=== PATIENT | male | born 1940 | race Caucasian/White ===

== ENCOUNTER 2020-07-02 14:16 | Inpatient (IN) | payer OTHER, MEDICAID ==
[~2020-07-02] VITALS: Ht 165.1 cm; Wt 74.4 kg
[2020-07-02] MEDS ORDERED: AMIODARONE HYD200 MG PO (14:55)
[2020-07-02] MEDS ORDERED: CYMBALTA30 MG PO (14:56)
[2020-07-02] MEDS ORDERED: B121000 MCG/1 IM (14:56)
[2020-07-02] MEDS ORDERED: FINASTERIDE5 M1 PO (14:57)
[2020-07-02] MEDS ORDERED: LASIX40 MG PO (14:57)
[2020-07-02] MEDS ORDERED: MELATONIN1 MG PO (14:58)
[2020-07-02] MEDS ORDERED: LOPRESSOR25 MG PO (14:58)
[2020-07-02] MEDS ORDERED: TYLENOL325 M1 PO (15:00)
[2020-07-02] MEDS ORDERED: XARE15TA PO (15:01)
[2020-07-02] MEDS ORDERED: PLAVIX75 M1 PO (15:02)
[2020-07-02] MEDS ORDERED: POTASSIUM CHLO10 ME4 PO (15:04)
[2020-07-02] MEDS ORDERED: PRAVACHOL40 MG PO (15:04)
[2020-07-02] MEDS ORDERED: PROTONIX40 MG PO (15:10)
[2020-07-02] MEDS ORDERED: PROVENTIL HFA6.7 GM INH (15:12)
[2020-07-02] MEDS ORDERED: SEROQUEL25 MG PO (15:13)
[2020-07-02] MEDS ORDERED: SEROQUEL50 MG PO (15:13)
[2020-07-02] MEDS ORDERED: SYMB160 INH (15:14)
[2020-07-02] MEDS ORDERED: SYNTHROID25 MCG PO (15:15)
[2020-07-02] MEDS ORDERED: ROPINIROLE HYDRO1 MG PO (15:17)
[2020-07-02 17:33] VITALS: BP 118/62
[2020-07-02 19:23] VITALS: BP 122/64
[2020-07-02 20:00] VITALS: BP 122/64
[2020-07-02 21:15] LABS: BILIRUBIN Negative (Negative); BLOOD 1+ (Negative); CLARITY Cloudy (Clear); COLOR Yellow (Yellow); GLUCOSE Negative (Negative); KETONE Negative (Negative); LEUKO ESTERASE 3+ (Negative); NITRITE Positive (Negative); SPECIFIC GRAVITY 1.015 (1.001-1.030); UROBILINOGEN 0.2 E.U./dl (0.0-1.0)
[2020-07-02 21:23] LABS: BACTERIA 2+; MUCOUS TRACE; WBC TNTC wbc/hpf (0-5)
[2020-07-03 07:08] LABS: BASO # 0.1 10*3/uL (0.0-0.1); BASO % 0.8 % (0.0-1.0); EOS # 0.2 10*3/uL (0.0-0.4); EOS % 2.6 % (1.0-4.0); HEMATOCRIT 38.1 % (42.0-52.0); LYMPH # 2.3 10*3/uL (1.3-4.4); LYMPH % 29.4 % (27.0-41.0); MEAN CELL VOLUME 95.3 fl (80.0-94.0); MEAN CORPUSCULAR HGB 30.3 pg (27.0-31.0); MEAN CORPUSCULAR HGB CONC 31.8 g/dl (33.0-37.0); MEAN PLATELET VOLUME 10.4 fl (9.6-12.3); MONO # 0.9 10*3/uL (0.1-1.0); MONO % 11.4 % (3.0-9.0); NEUT # 4.3 10*3/uL (2.3-7.9); NEUT % 55.7 % (47.0-73.0); PLATELET COUNT AUTOMATED 339 10*3/uL (130-400); RED CELL DISTRI WIDTH 15.1 % (0-14.5); WHITE BLOOD COUNT 7.7 10*3/uL (4.8-10.8)
[2020-07-03 07:16] VITALS: BP 153/81
[2020-07-03 07:34] LABS: CHLORIDE 103 mmol/L (98-107); POTASSIUM 3.7 mmol/L (3.5-5.1); SODIUM 137 mmol/L (136-145)
[2020-07-03 07:54] LABS: ALBUMIN 3.2 gm/dl (3.1-4.5); ALKALINE PHOSPHATASE 80 U/L (45-117); BUN 18 mg/dl (7-24); CHOLESTEROL 136 mg/dL (<200); CREATININE 1.05 mg/dL (0.70-1.30); HDL CHOLESTEROL 50 mg/dl (40-60); LDL CHOLESTEROL 57 mg/dL (9-159); SGOT/AST 23 IU/L (3-35); SGPT/ALT 29 U/L (12-78); TOTAL PROTEIN 6.7 gm/dL (6.4-8.2); TRIGLYCERIDES 144 mg/dl (<150); VLDL CHOLESTEROL 29 mg/dL (6-40)
[2020-07-03 09:15] LABS: VITAMIN D, 25-HYDROXY 16.2 ng/mL (30-100)
[2020-07-03 19:44] VITALS: BP 131/64
[2020-07-04 07:30] VITALS: BP 148/78
[2020-07-04 20:00] VITALS: BP 114/50
[2020-07-05 07:49] VITALS: BP 152/62
[2020-07-05 20:00] VITALS: BP 115/60
[2020-07-06 07:02] VITALS: BP 138/58
[2020-07-06 20:00] VITALS: BP 117/58
[2020-07-06 21:23] VITALS: BP 118/60
[2020-07-07 07:33] VITALS: BP 110/58
[2020-07-07 20:00] VITALS: BP 110/60
[2020-07-08 07:36] VITALS: BP 140/60
[2020-07-08 19:57] VITALS: BP 141/66
[2020-07-09 07:22] VITALS: BP 129/63
[2020-07-09 20:00] VITALS: BP 142/58
[2020-07-10 07:47] VITALS: BP 132/64
[2020-07-10 20:00] VITALS: BP 122/60
[2020-07-11 08:00] VITALS: BP 127/61
[2020-07-11 20:00] VITALS: BP 127/61; BP 129/61
[2020-07-12 07:20] VITALS: BP 137/68
[2020-07-12] MEDS ORDERED: GABAPENTIN100 M2 PO (11:39)
[2020-07-12 20:00] VITALS: BP 127/41
[2020-07-13 07:16] VITALS: BP 151/81
[2020-07-13] MEDS ORDERED: CITALOPRAM20 MG PO (08:56)
[2020-07-13] MEDS ORDERED: ZOLPIDEM TART5 MG PO (08:56)
[2020-07-13] MEDS ORDERED: VITAMIN D3125 MC1 PO (08:56)
[2020-07-13] MEDS ORDERED: REQUIP2 MG PO (08:56)
[2020-07-13] MEDS ORDERED: RIVASTIGMINE1 EAC2 T (08:56)
[2020-07-13] MEDS ORDERED: MEMANTINE HCL10 MG PO (08:56)
[2020-07-13] MEDS ORDERED: PALIPERIDONE ER6 MG PO (08:56)
[2020-07-13 20:00] VITALS: BP 118/47
[2020-07-14 07:46] VITALS: BP 114/57
[2020-07-14 20:00] VITALS: BP 125/54
[2020-07-15 06:33] VITALS: BP 105/88
[2020-07-15 20:00] VITALS: BP 121/65
[2020-07-16 07:41] VITALS: BP 110/58
[2020-07-16 19:27] VITALS: BP 110/67
[2020-07-17 07:37] VITALS: BP 121/65
== END 2020-07-17 15:33 | DRG 885 ==
LOC: 3N 14:16 → EDBD 15:54 → 3N 15:54
PROVIDERS: ADMIT Psychiatry & Neurology Psychiatry; ATTEND Psychiatry & Neurology Psychiatry
DX: F33.3 Major depressive disorder, recurrent, severe with psychotic symptoms (principal); B02.29 Other postherpetic nervous system involvement; Z16.12 Extended spectrum beta lactamase (ESBL) resistance; N30.00 Acute cystitis without hematuria; F02.81 Dementia in other diseases classified elsewhere, unspecified severity, with behavioral disturbance; D53.9 Nutritional anemia, unspecified; E55.9 Vitamin D deficiency, unspecified; Z95.810 Presence of automatic (implantable) cardiac defibrillator; N40.0 Benign prostatic hyperplasia without lower urinary tract symptoms; G25.81 Restless legs syndrome; J44.9 Chronic obstructive pulmonary disease, unspecified; E03.9 Hypothyroidism, unspecified; I10 Essential (primary) hypertension; N13.9 Obstructive and reflux uropathy, unspecified; N40.1 Benign prostatic hyperplasia with lower urinary tract symptoms; R39.14 Feeling of incomplete bladder emptying; F41.9 Anxiety disorder, unspecified; E78.5 Hyperlipidemia, unspecified; G30.9 Alzheimer's disease, unspecified; Z86.718 Personal history of other venous thrombosis and embolism; Z79.899 Other long term (current) drug therapy; Z82.49 Family history of ischemic heart disease and other diseases of the circulatory system